=== PATIENT | female | born 1960 ===

== ENCOUNTER → 2020-09-29 | Outpatient (CLI) | payer OTHER ==
--- NOTE | 2020-09-29 12:36 | RAD ---
EXAM: Chest, 2 views. HISTORY: COPD. COMPARISON: None. FINDINGS: 2 views of the chest are obtained. There is hyperinflation due to emphysema. There are ceo and founder audi appearing interstitial changes. There is linear right middle lobe scarring. There is a small nodu lar opacity overlying the right mid thorax which may be due to callus formation surrounding a healing or healed rib fracture. The heart is normal in size. There is no pleural effusion or pneumothorax. IMPRESSION: 1. Emphysema with superimposed chronic interstitial changes, including right middle lobe linear scarr ing. There is no acute infiltrate. 2. Small nodular opacity overlying the right mid thorax possibly due to callus formation surrounding a healed or healing rib fracture. Short-term radiographic follow-up can be performed to exclude a non calcified nodule in this location. Electronically signed by: Gina Kasper MD (09/29/2020 12:33 PM) [id number]
== END ==
LOC: PF 10:19
PROVIDERS: ATTEND Family Medicine
DX: Z02.71 Encounter for disability determination (principal); J43.9 Emphysema, unspecified; R91.1 Solitary pulmonary nodule; J98.4 Other disorders of lung
CPT/HCPCS: 71046; 94060; 94640; 94664